=== PATIENT | female | born 1945 | race Hispanic/Latino ===

== ENCOUNTER → 2019-01-07 | Outpatient (CLI) | payer OTHER | END | disposition home or self-care (01) | LOC: OIH 11:08 | PROVIDERS: ATTEND Internal Medicine Cardiovascular Disease | DX: Z13.6 Encounter for screening for cardiovascular disorders (principal) | CPT/HCPCS: 75571 ==

== ENCOUNTER 2021-05-27 18:51 | Observation (INO) | payer OTHER ==
[~2021-05-27] VITALS: Ht 149.9 cm; Wt 59.4 kg
[2021-05-27 19:59] LABS: BASOPHILS % (AUTO) 1.1 % (0.0-5.0); EOSINOPHILS % (AUTO) 2.1 % (0.0-8.0); HEMATOCRIT 45.2 % (36-48); LYMPHOCYTES % (AUTO) 25.6 % (21.0-51.0); MEAN CORPUSCULAR HEMOGLOBIN 29.1 pg (27.0-33.0); MEAN CORPUSCULAR HGB CONC 31.6 g/dL (32.0-36.0); MEAN CORPUSCULAR VOLUME 91.9 fL (79-99); MONOCYTES % (AUTO) 8.3 % (3.0-13.0); NEUTROPHILS % (AUTO) 62.5 % (40.0-77.0); PLATELET COUNT (AUTO) 372 K/uL (130-400); RED BLOOD CELL COUNT(AUTO) 4.92 MIL/uL (4.00-5.50); RED CELL DISTRIBUTION WIDTH 13.6 % (11.0-15.5); WHITE BLOOD COUNT (AUTO) 7.1 K/uL (4.8-10.8)
[2021-05-27] MEDS ORDERED: DIPHENHYDRAMINE HCL 25 MG CAPSULE PO PRN (20:00)
[2021-05-27] MEDS ORDERED: DiphenhydrAMINE HCL 50 MG/ML VIAL IVP PRN (20:00)
[2021-05-27] MEDS ORDERED: ACETAMINOPHEN 325 MG TAB PO PRN (20:00)
[2021-05-27] MEDS ORDERED: DEXTROSE 50%-WATER 50 ML DISP.SYRIN IV PRN (20:00)
[2021-05-27] MEDS ORDERED: GUAIFENESIN-DM 200/20 MG 10 ML PO PRN (20:00)
[2021-05-27 20:09] LABS: APPEARANCE,URINE Turbid (CLEAR); BILIRUBIN,URINE Negative (NEGATIVE); COLOR,URINE Yellow (YELLOW); CREATININE 1.6 mg/dL (0.5-1.5); GLUCOSE, URINE (UA) Negative (NEGATIVE); KETONES,URINE Negative (NEGATIVE); LEUKOCYTE ESTERASE ,URINE Large (NEGATIVE); NITRATE,URINE Positive (NEGATIVE); OCCULT BLOOD,URINE Large (NEGATIVE); PH,URINE 5.5 (5.0-8.0); POTASSIUM 3.7 mmol/L (3.5-5.1); PROTEIN,URINE POS 2+ mg/dL (NEGATIVE); UROBILINOGEN,URINE 0.2 mg/dL (0.2-1.0)
[2021-05-27 20:13] LABS: ALBUMIN 3.1 g/dL (3.5-5.0); BILIRUBIN,DIRECT 0.1 mg/dL (0.0-0.3); BILIRUBIN,TOTAL 0.2 mg/dL (0.2-1.0); TOTAL PROTEIN, SERUM 8.1 g/dL (6.0-8.3)
[2021-05-27] MEDS: 1/2 NS 1000ML 1,000 ML IV SCH (20:27)
[2021-05-27] MEDS ORDERED: CEFTRIAXONE 1G VIAL IVP SCH (20:30)
[2021-05-27] MEDS ORDERED: PHARMACY COMMUNICATION MISC SCH (20:30)
[2021-05-27 20:34] LABS: BACTERIA,URINE Few /HPF (None Seen); RBC,URINE None Seen /HPF (0-1); SQUAMOUS EPITHELIAL CELL,UR None Seen /HPF (0-2); WBC,URINE 51-100 /HPF (0-1)
[2021-05-27] MEDS: HUMALOG PO SS1 SQ SCH (21:24)
[2021-05-27] MEDS: DOXYCYCLINE 100MG+NS 250ML 250 ML IV SCH (21:24)
[2021-05-27] MEDS ORDERED: BACL10TA PO (22:02)
[2021-05-27] MEDS ORDERED: ASPI-1197 PO (22:02)
[2021-05-27] MEDS ORDERED: METF-444 PO (22:02)
[2021-05-27] MEDS ORDERED: NAPR-1023 PO (22:02)
[2021-05-27] MEDS ORDERED: METF-446 PO (22:02)
[2021-05-27] MEDS ORDERED: LISI2.5T13 PO (22:02)
[2021-05-27] MEDS ORDERED: BIOT10TA PO (22:02)
[2021-05-27] MEDS ORDERED: MICO45CR44 VG (22:02)
[2021-05-27] MEDS ORDERED: GABA300S PO (22:02)
[2021-05-27] MEDS ORDERED: PUMP300C PO (22:02)
[2021-05-27] MEDS ORDERED: PRAV20TA4 PO (22:02)
[2021-05-27 22:20] VITALS: BP 145/69
[2021-05-28] MEDS: 1/2 NS 1000ML 1,000 ML IV SCH (03:46)
[2021-05-28 03:53] VITALS: BP 122/76
[2021-05-28 05:09] LABS: BASOPHILS % (AUTO) 0.9 % (0.0-5.0); EOSINOPHILS % (AUTO) 2.3 % (0.0-8.0); HEMATOCRIT 37.7 % (36-48); LYMPHOCYTES % (AUTO) 31.4 % (21.0-51.0); MEAN CORPUSCULAR HEMOGLOBIN 29.1 pg (27.0-33.0); MEAN CORPUSCULAR HGB CONC 31.8 g/dL (32.0-36.0); MEAN CORPUSCULAR VOLUME 91.5 fL (79-99); MONOCYTES % (AUTO) 9.7 % (3.0-13.0); NEUTROPHILS % (AUTO) 54.9 % (40.0-77.0); PLATELET COUNT (AUTO) 318 K/uL (130-400); RED BLOOD CELL COUNT(AUTO) 4.12 MIL/uL (4.00-5.50); RED CELL DISTRIBUTION WIDTH 13.4 % (11.0-15.5); WHITE BLOOD COUNT (AUTO) 7.8 K/uL (4.8-10.8)
[2021-05-28 05:42] LABS: ALBUMIN 2.5 g/dL (3.5-5.0); BILIRUBIN,DIRECT 0.1 mg/dL (0.0-0.3); BILIRUBIN,TOTAL 0.3 mg/dL (0.2-1.0); CREATININE 1.3 mg/dL (0.5-1.5); POTASSIUM 3.7 mmol/L (3.5-5.1); TOTAL PROTEIN, SERUM 6.7 g/dL (6.0-8.3)
[2021-05-28] MEDS: HUMALOG PO SS1 SQ SCH (06:18)
[2021-05-28 07:51] VITALS: BP 136/75
[2021-05-28] MEDS: DOXYCYCLINE 100MG+NS 250ML 250 ML IV SCH (08:34)
[2021-05-31 13:11] LABS: ROCKY MT SPOTTED FEVER IGG <1:64 (Neg:<1:64); ROCKY MT SPOTTED FEVER IGM <1:64 (Neg:<1:64); TYPHUS FEVER AB IGG <1:64 (Neg:<1:64); TYPHUS FEVER AB IGM <1:64 (Neg:<1:64)
== END 2021-05-28 10:45 | disposition home or self-care (01) ==
LOC: EDH 18:51 → EDHIP 18:52 → 3DH 22:02
PROVIDERS: ADMIT Internal Medicine; ATTEND Internal Medicine
DX: R50.9 Fever, unspecified (principal); Z20.822 Contact with and (suspected) exposure to COVID-19; E86.0 Dehydration; E11.9 Type 2 diabetes mellitus without complications; Z79.82 Long term (current) use of aspirin; Z79.84 Long term (current) use of oral hypoglycemic drugs
CPT/HCPCS: 36415 ×2; 71045; 80048 ×2; 80076 ×2; 81001; 82948 ×2; 85025 ×2; 86757; 87040 ×2; 87077; 87088; 87186; 87635; 96361 ×2; 96365; 96366; 96372; 96375; G0378 ×16; G0379; J0696; J3490

== ENCOUNTER 2022-10-29 06:53 | Emergency (ER) | payer MEDICARE, OTHER ==
[~2022-10-29] VITALS: Ht 144.8 cm; Wt 54.4 kg
[~2022-10-29 06:53] MED LIST: ASPI-1197 PO; BACL10TA PO; BIOT10TA PO; GABA300S3 PO; LISI2.5T13 PO; METF-444 PO; METF-446 PO; MICO45CR44 VG; NAPR-1023 PO; PRAV20TA4 PO; PUMP300C PO
[2022-10-29] MEDS ORDERED: 0.9%NACL 1000ML 1,000 ML IV ONE (08:00)
[2022-10-29 08:29] LABS: BASOPHILS # (AUTO) 0.05 K/uL (0.00-0.20); BASOPHILS % (AUTO) 0.7 % (0.0-5.0); EOSINOPHILS % (AUTO) 2.8 % (0.0-8.0); HEMATOCRIT 46.2 % (36-48); IMMATURE GRANULOCYTE ABSOLUTE 0.03 K/uL (0-1); LYMPHOCYTES # (AUTO) 1.8 K/uL (1.0-4.8); LYMPHOCYTES % (AUTO) 25.4 % (21.0-51.0); MEAN CORPUSCULAR HGB CONC 32.7 g/dL (32.0-36.0); MEAN CORPUSCULAR VOLUME 91.7 fL (79-99); MONOCYTES # (AUTO) 0.6 K/uL (0.1-1.0); MONOCYTES % (AUTO) 8.2 % (3.0-13.0); NEUTROPHILS # (AUTO) 4.4 K/uL (1.8-7.7); NEUTROPHILS % (AUTO) 62.5 % (40.0-77.0); PLATELET COUNT (AUTO) 219 K/uL (130-400); RED BLOOD CELL COUNT(AUTO) 5.04 MIL/uL (4.00-5.50); RED CELL DISTRIBUTION WIDTH 13.9 % (11.0-15.5); WHITE BLOOD COUNT (AUTO) 7.1 K/uL (4.8-10.8)
[2022-10-29 08:45] LABS: APPEARANCE,URINE CLOUDY (CLEAR); BILIRUBIN,URINE NEGATIVE (NEGATIVE); COLOR,URINE LIGHT-YELLOW (YELLOW); GLUCOSE, URINE (UA) NEGATIVE (NEGATIVE); KETONES,URINE NEGATIVE (NEGATIVE); LEUKOCYTE ESTERASE ,URINE 500 Leu/uL (NEGATIVE); NITRATE,URINE 2+ (NEGATIVE); OCCULT BLOOD,URINE LARGE (NEGATIVE); PROTEIN,URINE 100 mg/dL (NEGATIVE); UROBILINOGEN,URINE 0.2 mg/dL (0.2-1.0)
[2022-10-29 08:46] LABS: ADD UA MICROSCOPIC YES
[2022-10-29] MEDS: ONDANSETRON 4MG INJ IVP ONE ×2 (09:03→09:46)
[2022-10-29 09:24] LABS: BACTERIA,URINE FEW /HPF (None Seen); MUCUS,URINE RARE LPF (None Seen); RBC,URINE TNTC /HPF (0-1); SQUAMOUS EPITHELIAL CELL,UR RARE /HPF (0-2); WBC,URINE TNTC /HPF (0-1); YEAST,URINE BUDDING RARE /HPF (None Seen)
[2022-10-29 09:45] LABS: INR 0.93 (0.85-1.15); PROTHROMBIN TIME 10.5 SEC (9.6-11.6)
[2022-10-29 09:46] LABS: PARTIAL THROMBOPLASTIN TIME 26.7 SEC (26.3-35.5)
[2022-10-29 10:59] VITALS: BP 167/92; PULSE 67; RESP 17; O2SAT 96
[2022-10-29 11:19] LABS: CARBON DIOXIDE 24 mmol/L (21-32); CHLORIDE 106 mmol/L (101-111); CREATININE 1.1 mg/dL (0.5-1.5); GLOMERULAR FILTR. RATE CALC 52 mL/min (>90); GLUCOSE,RANDOM 106 mg/dL (70-105); POTASSIUM 4.1 mmol/L (3.5-5.1); SODIUM SERUM 145 mmol/L (136-145); UREA NITROGEN, BLOOD 30 mg/dL (7-18)
[2022-10-29 11:33] LABS: ALANINE AMINOTRANSFERASE 22 U/L (12-78); ASPARTATE AMINOTRANSFERASE 22 U/L (10-37); BILIRUBIN,TOTAL 0.4 mg/dL (0.2-1.0); CREATINE KINASE, TOTAL 60 U/L (21-232); MYOGLOBIN 80 ng/mL (10-92); TOTAL PROTEIN, SERUM 7.4 g/dL (6.0-8.3)
[2022-10-29] MEDS ORDERED: CEFU500T67 PO (11:37)
[2022-10-29 11:40] LABS: ALCOHOL, BLOOD < 3 mg/dL (0-10)
== END 2022-10-29 10:55 | disposition home or self-care (01) ==
LOC: EDH 06:53
DX: S60.042A Contusion of left ring finger without damage to nail, initial encounter (principal); S80.12XA Contusion of left lower leg, initial encounter; S63.501A Unspecified sprain of right wrist, initial encounter; S09.90XA Unspecified injury of head, initial encounter; N39.0 Urinary tract infection, site not specified; E11.9 Type 2 diabetes mellitus without complications; Z79.82 Long term (current) use of aspirin; Z79.84 Long term (current) use of oral hypoglycemic drugs; Z79.899 Other long term (current) drug therapy; W18.39XA Other fall on same level, initial encounter; Y93.E1 Activity, personal bathing and showering; Y92.89 Other specified places as the place of occurrence of the external cause; Y99.8 Other external cause status
CPT/HCPCS: 99285; 70450; 96360; 71045; 82550; 83874; 84484; 80053; 85025; 85610; 85730; 87088; 81001; 36415; 73130; 72100; 72072; 73590; 73110; 72125; 93005; J7030; J2405